=== PATIENT | male | born 1990 | race Caucasian/White ===

== ENCOUNTER 2017-10-31 14:44 | Emergency (ER) | payer SELFPAY ==
[2017-10-31 14:45] VITALS: BP 137/76; PULSE 79; RESP 16; BMI 18.3
--- NOTE | 2017-10-31 15:25 | RAD_ITS ---
STUDY: X-RAY - RIGHT HAND REASON FOR EXAM: Male, 27 years old. Pain following recent injury. TECHNIQUE: 3 view(s) of the hand. COMPARISON: None. FINDINGS: Normal radiocarpal articulation. Normal distal radioulnar joint. Normal visualized carpal bones. Normal carpal articulations Normal carpometacarpal articulation of the thumb. Normal second through fifth carpometacarpal joints. Normal metacarpi. Normal metacarpophalangeal joint of the thumb. Normal interphalangeal joint of the thumb. Normal proximal and distal phalanges of the thumb. Normal metacarpophalangeal joints of the second through fifth fingers. Normal proximal and distal interphalangeal joints of the second through fifth fingers. Normal phalanges of the second through fifth fingers. The soft tissue structures are unremarkable. RAD/Hand Min 3 Views IMPRESSION: Normal x-ray examination of the hand. Electronically Signed: Ricci Doss MD at 15:44 EDT Tel [phone], Service support ,
--- NOTE | 2017-10-31 16:31 | ED.VISSUMM ---
- ER Visit Summary Date of Service: 10/31/17 Chief Complaint: Right hand pain History of Present Illness: The patient is a 27 M who punched a wall last night. He has pain on the right hand. Worse with movement. He has had previous fractures to fingers on the right hand. He took no medications for this at home. His work sent him in to get her excuse to return to work Physical Examination: Exam reveals tenderness to the base of the fourth and fifth metacarpals. He has full range of motion. Sensation and pulses are intact. Test Results: X-rays ordered from triage are negative Emergency Department Course and Treatment: X-rays are negative. Patient will ice and use NSAIDs at home. He will be given a excuse to return to work. Treatment Plan: [] Disposition: Discharge Impression: Right hand contusion This note was generated with [employer] dictation software. It may contain incorrect words, spelling, and punctuation that were not noted in review of the chart prior to signing ED Disposition - Plan for ED Patient: Chief Complaint: Upper Extremity Injury Referrals: Care Physician,No Primary [Primary Care Provider] -
--- NOTE | 2017-10-31 16:32 | ED.DEP ---
ED Disposition - Plan for ED Patient: Disposition: Home or Assisted Living Chief Complaint: Upper Extremity Injury Instructions: ED Contusion Upper Ext Referrals: Care Physician,No Primary [Primary Care Provider] -
[2017-10-31 16:37] VITALS: BP 121/74; PULSE 66; RESP 14; O2SAT 99
== END 2017-10-31 16:48 | disposition home or self-care (01) ==
LOC: ED 16:42
PROVIDERS: Emergency Provider Emergency Medicine
DX: S60.221A Contusion of right hand, initial encounter (principal); W22.01XA Walked into wall, initial encounter; Y93.9 Activity, unspecified; Y92.9 Unspecified place or not applicable; Z72.0 Tobacco use
CPT/HCPCS: 73130; 99282

== ENCOUNTER → 2018-08-09 12:05 | Outpatient (CLI) | payer OTHER, SELFPAY ==
[2018-08-09 11:55] VITALS: BMI 18.7
--- NOTE | 2018-08-09 12:08 | RAD_ITS ---
STUDY: X-RAY - LEFT RADIUS AND ULNA REASON FOR EXAM: Male, 28 years old. Injury. TECHNIQUE: 2 view(s) of the forearm. COMPARISON: None. FINDINGS: There is lateral soft tissue swelling at the distal third of the forearm. Normal visualized radius. Normal visualized ulna. There is no demonstrated acute fracture. RAD/Forearm 2 Views IMPRESSION: Lateral soft tissue swelling distal forearm. No acute fracture of the left radius and ulna. Electronically Signed: Jason Boyd MD at 12:25 EDT , Service support ,
== END ==
PROVIDERS: Referring Provider Physician Assistant; Visit Provider Physician Assistant
DX: S50.12XA Contusion of left forearm, initial encounter (principal)
CPT/HCPCS: 73090